=== PATIENT | male | born 2000 | race Caucasian/White ===

== ENCOUNTER 2020-09-04 20:42 | Emergency (ER) | payer OTHER ==
[~2020-09-04] VITALS: Ht 182.9 cm; Wt 84.1 kg
[2020-09-04 21:06] VITALS: TEMP 98.8
[2020-09-04] MEDS ORDERED: VRAYLAR1.5 MG (21:14)
[2020-09-04] MEDS ORDERED: ATARAX50 MG PO (21:15)
[2020-09-04] MEDS ORDERED: DESYREL 50MG50 MG (21:16)
[2020-09-04 21:28] LABS: BASO # 0.1 (0.0-0.2); BASO % 0.9 % (0.0-2.0); EOS # 0.4 (0.0-0.7); EOS % 3.5 % (0-4.0); GRAN # 6.5 (1.4-6.5); GRAN % 62.2 % (42.2-75.2); HEMATOCRIT 45.1 % (36.0-47.0); HEMOGLOBIN 15.6 g/dl (12.5-16.1); LYMPH # 2.7 (1.2-3.4); LYMPH % 25.7 % (20.0-51.0); MEAN CELL VOLUME 86 fl (80.0-95.0); MEAN CORPUSCULAR HEMOGLOBIN 30 pg (26.0-32.0); MEAN CORPUSCULAR HGB CONC 35 g/dl (33.0-37.0); MONO # 0.8 (0.1-0.6); MONO % 7.2 % (1.7-9.3); PLATELET COUNT 247 K/mm3 (130-400); RED BLOOD COUNT 5.22 M/mm3 (4.20-5.60); REDCELL DISTRIBUTION WIDTH-CV 11.9 % (11.5-14.5)
[2020-09-04 21:34] LABS: ALBUMIN 4.7 gm/dL (3.5-5.0); BILIRUBIN,TOTAL 0.3 mg/dL (0.0-1.0); CALCIUM 9.4 mg/dL (8.4-10.2); CREATININE, serum 0.86 (0.66-1.25); POTASSIUM 4.2 mmol/L (3.4-5.0); TOTAL PROTEIN 7.7 gm/dL (6.4-8.2)
[2020-09-04 22:13] LABS: COLLECTION METHOD CLEAN CATCH
[2020-09-04 22:18] LABS: PH 7 (5-8); SQUAMOUS EPITHELIAL None Seen /hpf; URINE APPEARANCE Clear; URINE BACTERIA None Seen /hpf; URINE BILIRUBIN Negative (NEGATIVE); URINE BLOOD Negative (NEGATIVE); URINE COLOR Straw; URINE GLUCOSE Negative (NEGATIVE); URINE KETONE Negative (NEGATIVE); URINE LEUKOCYTE ESTERASE Negative (NEGATIVE); URINE NITRATE Negative (NEGATIVE); URINE PROTEIN(semi-quant) Negative (NEGATIVE); URINE RBC None Seen /hpf; URINE UROBILINOGEN Negative (NEGATIVE); URINE WBC 0-2 /hpf
[2020-09-05] MEDS ORDERED: PRIL40 PO (00:29)
[2020-09-05] MEDS ORDERED: CARAFATE 1GM1 G PO (00:29)
[2020-09-05] MEDS ORDERED: ZOFRAN ODT4 MG PO (00:29)
[2020-09-05 01:00] VITALS: BP 115/74; PULSE 59
== END 2020-09-05 01:07 | disposition home or self-care (01) ==
LOC: COL.ER 20:42
PROVIDERS: Emergency Medicine
DX: K52.9 Noninfective gastroenteritis and colitis, unspecified (principal); F17.210 Nicotine dependence, cigarettes, uncomplicated
CPT/HCPCS: C9113; J1100; J2270; J2405; J7030; Q9967

== ENCOUNTER 2020-12-20 11:21 | Emergency (ER) | payer OTHER ==
[~2020-12-20] VITALS: Ht 182.9 cm; Wt 84.1 kg
[~2020-12-20 11:21] MED LIST: ATARAX50 MG PO; CARAFATE 1GM1 G PO; DESYREL 50MG50 MG; PRIL40 PO; VRAYLAR1.5 MG; ZOFRAN ODT4 MG PO
[2020-12-20 11:44] VITALS: BP 112/73; TEMP 98.3
[2020-12-20] MEDS ORDERED: ATARAX 25MG25 MG/TAB PO (11:47)
[2020-12-20] MEDS ORDERED: EFFEXOR XR75 MG/CAP PO (11:47)
[2020-12-20] MEDS ORDERED: VRAYLAR1.5 MG PO (11:48)
[2020-12-20 12:48] VITALS: PULSE 87
== END 2020-12-20 12:48 | disposition home or self-care (01) ==
LOC: COL.ER 11:21
DX: S61.210A Laceration without foreign body of right index finger without damage to nail, initial encounter (principal); F17.200 Nicotine dependence, unspecified, uncomplicated; Z23 Encounter for immunization; Y92.009 Unspecified place in unspecified non-institutional (private) residence as the place of occurrence of the external cause; W26.9XXA Contact with unspecified sharp object(s), initial encounter

== ENCOUNTER 2023-06-24 20:48 | Emergency (ER) | payer SELFPAY ==
[~2023-06-24] VITALS: Ht 182.9 cm; Wt 70.0 kg
[~2023-06-24 20:48] MED LIST changes: +ATARAX 25MG25 MG/TAB PO; +EFFEXOR XR75 MG/CAP PO; +VRAYLAR1.5 MG PO
[2023-06-24] MEDS ORDERED: Tetanus,Diphther Toxoid Adult 0.5 ML SYRINGE IM ONE (21:00)
[2023-06-24 21:40] VITALS: BP 129/73; PULSE 74; TEMP 98.2
== END 2023-06-24 21:40 | disposition home or self-care (01) ==
LOC: COL.ER 20:48
DX: S61.213A Laceration without foreign body of left middle finger without damage to nail, initial encounter (principal); Z23 Encounter for immunization; W27.2XXA Contact with scissors, initial encounter; Y99.0 Civilian activity done for income or pay